=== PATIENT | male | born 1935 | race Caucasian/White ===

== ENCOUNTER 2023-02-15 18:32 | Inpatient (IN) | payer MEDICARE, BC ==
[2023-02-15 19:11] LABS: #Basophils 0.1 10x3/uL (0.0-0.2); #Monocytes 0.9 10x3/uL (0.0-1.1); #Neutrophils 7.5 10x3/uL (1.5-8.4); %Basophils 0.7 % (0.0-2.0); %Eosinophils 0.4 % (0.0-6.0); %Monocytes 9.4 % (0.0-10.0); %Neutrophils 76.9 % (40.0-75.0); Hemoglobin 13.5 g/dL (13.5-17.5); Mean Corpuscular HGB CONC 33.7 g/dL (32.0-36.0); Mean Corpuscular Hemoglobin 30.9 pg (27.0-33.0); Mean Corpuscular Volume 91.8 fl (81.2-95.1); Mean Platelet Volume 10.5 fl (7.4-10.4); Platelet Count 166 10x3/uL (150-450); RBC Distribution Width 13.1 % (11.5-14.5); Red Blood Cell (RBC) Count 4.37 10x6/uL (4.32-5.72); White Blood Cell (WBC) Count 9.7 10x3/uL (3.5-10.5)
[2023-02-15 19:24] LABS: ALT (SGPT) 19 U/L (8-55); AST (SGOT) 40 U/L (5-34); Alkaline Phosphatase 68 U/L (40-110); Anion Gap 16 mmol/L (10-20); BUN (Urea Nitrogen) 35 mg/dL (8.4-25.7); Bilirubin, Total 0.8 mg/dL (0.2-1.2); CK (CPK) 841 U/L (30-200); Calc. Creatinine Clearance 0 mL/min (70-130); Calcium 9.1 mg/dL (7.8-10.44); Carbon Dioxide 22 mmol/L (23-31); Chloride 104 mmol/L (98-107); Estimated GFR 50; Globulin 3.9 g/dL (2.4-3.5); Glucose 97 mg/dL (83-110); Lipase 13 U/L (8-78); Potassium 4.2 mmol/L (3.5-5.1); Protein, Total 7.9 g/dL (5.8-8.1); Sodium 138 mmol/L (136-145)
[2023-02-15 19:47] LABS: CKMB 19.7 ng/mL (0-6.6)
[2023-02-15] MEDS ORDERED: Aspirin Chewable 81 MG TAB ONE (20:05)
[2023-02-15 20:23] LABS: SARS-CoV-2 NAA Rapid Test Not Detected (NotDetected)
[2023-02-15 20:24] LABS: Bilirubin Neg (Negative); Blood, Urine 25 (Negative); Clarity Clear (Clear); Glucose, Urine (Dipstick) Normal (Negative); Ketone, Urine 5 mg/dL (Negative); Leukocyte 25 (Negative); Nitrite Negative (Negative); Protein, Urine (Dipstick) 30 mg/dl (Neg-Trace); Urobilinogen Normal mg/dL (Less than 2); pH, Urine 6.5 (5.0-9.0)
[2023-02-15 20:33] LABS: WBC/HPF 0-3 HPF (0-3)
[2023-02-15 20:34] LABS: Bacteria/HPF Rare-Few HPF (None Seen); Squamous Epithelial 0-3 HPF (0-3)
[2023-02-15] MEDS ORDERED: Ondansetron ODT 4 MG TAB PO PRN (21:51)
[2023-02-15] MEDS ORDERED: Senokot S 8.6-50 MG TAB PO PRN (21:51)
[2023-02-15] MEDS ORDERED: Electrolyte Replacement Protocol FS PRN (21:51)
[2023-02-15 23:04] VITALS: BMI 22.7
[2023-02-15] MEDS ORDERED: Lactated Ringer's 1,000 ML IV SCH (23:59)
[2023-02-16 00:56] LABS: Troponin I 0.079 ng/mL (< 0.028)
[2023-02-16 03:20] LABS: #Eosinphils 0.1 10x3/uL (0.0-0.5); #Monocytes 0.9 10x3/uL (0.0-1.1); #Neutrophils 4.4 10x3/uL (1.5-8.4); %Basophils 0.6 % (0.0-2.0); %Eosinophils 1.8 % (0.0-6.0); %Lymphocytes 22.3 % (18.0-47.0); %Monocytes 12.8 % (0.0-10.0); %Neutrophils 62.2 % (40.0-75.0); Hemoglobin 12.2 g/dL (13.5-17.5); Mean Corpuscular HGB CONC 34.5 g/dL (32.0-36.0); Mean Corpuscular Hemoglobin 31.7 pg (27.0-33.0); Mean Corpuscular Volume 91.9 fl (81.2-95.1); Mean Platelet Volume 9.9 fl (7.4-10.4); Platelet Count 164 10x3/uL (150-450); RBC Distribution Width 13.1 % (11.5-14.5); Red Blood Cell (RBC) Count 3.85 10x6/uL (4.32-5.72); White Blood Cell (WBC) Count 7.1 10x3/uL (3.5-10.5)
[2023-02-16 03:36] LABS: Troponin I 0.078 ng/mL (< 0.028)
[2023-02-16 03:40] LABS: Anion Gap 16 mmol/L (10-20); BUN (Urea Nitrogen) 31 mg/dL (8.4-25.7); Calc. Creatinine Clearance 46 mL/min (70-130); Calcium 8.8 mg/dL (7.8-10.44); Carbon Dioxide 20 mmol/L (23-31); Chloride 109 mmol/L (98-107); Estimated GFR 61; Glucose 87 mg/dL (83-110); Potassium 4.1 mmol/L (3.5-5.1); Sodium 141 mmol/L (136-145)
[2023-02-16] MEDS: Famotidine 20 MG TAB PO SCH (09:47)
[2023-02-16] MEDS ORDERED: Loratadine 10 MG TAB PO PRN (10:01)
[2023-02-16] MEDS ORDERED: Magnesium 2 GM/50 ML(in water) 2 GM in Premix Bag 1 BAG IVPB SCH (14:00)
[2023-02-16] MEDS: Acetaminophen 325 MG TAB PO PRN (15:57)
[2023-02-17 07:38] LABS: #Basophils 0.1 10x3/uL (0.0-0.2); #Eosinphils 0.2 10x3/uL (0.0-0.5); %Basophils 0.7 % (0.0-2.0); %Eosinophils 1.9 % (0.0-6.0); %Lymphocytes 19.2 % (18.0-47.0); %Monocytes 10.7 % (0.0-10.0); %Neutrophils 67.3 % (40.0-75.0); Hemoglobin 12.7 g/dL (13.5-17.5); Mean Corpuscular HGB CONC 33.7 g/dL (32.0-36.0); Mean Corpuscular Hemoglobin 31.4 pg (27.0-33.0); Mean Corpuscular Volume 93.3 fl (81.2-95.1); Mean Platelet Volume 10.1 fl (7.4-10.4); Platelet Count 185 10x3/uL (150-450); RBC Distribution Width 13.2 % (11.5-14.5); Red Blood Cell (RBC) Count 4.04 10x6/uL (4.32-5.72); White Blood Cell (WBC) Count 8.9 10x3/uL (3.5-10.5)
[2023-02-17 07:55] LABS: ALT (SGPT) 19 U/L (8-55); AST (SGOT) 43 U/L (5-34); Albumin 3.4 g/dL (3.4-4.8); Alkaline Phosphatase 60 U/L (40-110); Anion Gap 15 mmol/L (10-20); BUN (Urea Nitrogen) 22 mg/dL (8.4-25.7); Bilirubin, Total 0.7 mg/dL (0.2-1.2); CK (CPK) 433 U/L (30-200); Calc. Creatinine Clearance 48 mL/min (70-130); Calcium 8.7 mg/dL (7.8-10.44); Carbon Dioxide 21 mmol/L (23-31); Chloride 107 mmol/L (98-107); Estimated GFR 64; Globulin 3.6 g/dL (2.4-3.5); Glucose 93 mg/dL (83-110); Magnesium 2.1 mg/dL (1.6-2.6); Potassium 4.5 mmol/L (3.5-5.1); Sodium 138 mmol/L (136-145)
[2023-02-17] MEDS: Famotidine 20 MG TAB PO SCH (07:56)
[2023-02-17] MEDS: Tamsulosin HCl 0.4 MG CAP PO SCH (07:56)
[2023-02-17 08:11] LABS: Phosphorus 2.8 mg/dL (2.3-4.7)
[2023-02-17] MEDS: Acetaminophen 325 MG TAB PO PRN (09:05)
[2023-02-18] MEDS: Acetaminophen 325 MG TAB PO PRN (08:00)
[2023-02-18] MEDS: Tamsulosin HCl 0.4 MG CAP PO SCH (08:00)
[2023-02-18] MEDS: Famotidine 20 MG TAB PO SCH (08:00)
[2023-02-18] MEDS ORDERED: Sodium Chloride 0.9% 500 ML IV SCH (08:15)
[2023-02-18] MEDS ORDERED: Senokot S 8.6-50 MG TAB PO PRN (10:00)
[2023-02-18 10:26] LABS: Bilirubin Neg (Negative); Blood, Urine 10 (Negative); Glucose, Urine (Dipstick) Normal (Negative); Ketone, Urine Negative (Negative); Leukocyte Negative (Negative); Nitrite Negative (Negative); Protein, Urine (Dipstick) 15 mg/dl (Neg-Trace); Urobilinogen Normal mg/dL (Less than 2)
[2023-02-18 10:35] LABS: Clarity Slightly Cloudy (Clear)
[2023-02-18] MEDS ORDERED: Aspirin Chewable 81 MG TAB PO SCH (10:38)
[2023-02-18 10:40] LABS: Bacteria/HPF 4+ HPF (None Seen); Triple Phosphate Crystal 2+ HPF (None Seen)
[2023-02-18] MEDS ORDERED: Aspirin Chewable 81 MG TAB ONE (10:40)
[2023-02-18 10:41] LABS: CAUTI Indications for Culture Alt mental st,lethar; RBC/HPF 0-3 HPF (0-3); Squamous Epithelial 0-3 HPF (0-3); WBC/HPF 0-3 HPF (0-3)
[2023-02-18 10:42] LABS: Urine Culture Reflex No No
[2023-02-18] MEDS ORDERED: VANCOMYCIN 1.25 GM/250 ML BAG 1.25 GM in Premix Bag 1 BAG IVPB SCH ×2 (10:45→14:00)
[2023-02-18] MEDS: Cefepime 1 GM in Sodium Chloride 0.9% 100 ML IVPB SCH ×2 (12:45→22:15)
[2023-02-18 13:10] LABS: Troponin I 0.379 ng/mL (< 0.028)
[2023-02-19 07:44] LABS: #Basophils 0.1 10x3/uL (0.0-0.2); #Eosinphils 0.2 10x3/uL (0.0-0.5); #Monocytes 0.9 10x3/uL (0.0-1.1); %Basophils 0.6 % (0.0-2.0); %Eosinophils 1.9 % (0.0-6.0); %Monocytes 8.8 % (0.0-10.0); %Neutrophils 72.5 % (40.0-75.0); Hemoglobin 12.5 g/dL (13.5-17.5); Mean Corpuscular HGB CONC 33.2 g/dL (32.0-36.0); Mean Corpuscular Hemoglobin 31.3 pg (27.0-33.0); Mean Corpuscular Volume 94.3 fl (81.2-95.1); Mean Platelet Volume 10.5 fl (7.4-10.4); Platelet Count 176 10x3/uL (150-450); White Blood Cell (WBC) Count 9.7 10x3/uL (3.5-10.5)
[2023-02-19] MEDS: Famotidine 20 MG TAB PO SCH (08:01)
[2023-02-19] MEDS: Tamsulosin HCl 0.4 MG CAP PO SCH (08:01)
[2023-02-19] MEDS: Aspirin 325 mg Enteric Coated Tablet PO SCH (08:01)
[2023-02-19 08:04] LABS: Anion Gap 16 mmol/L (10-20); BUN (Urea Nitrogen) 24 mg/dL (8.4-25.7); Calc. Creatinine Clearance 44 mL/min (70-130); Calcium 9.1 mg/dL (7.8-10.44); Carbon Dioxide 20 mmol/L (23-31); Chloride 107 mmol/L (98-107); Estimated GFR 57; Glucose 90 mg/dL (83-110); Potassium 4.3 mmol/L (3.5-5.1); Sodium 139 mmol/L (136-145)
[2023-02-19 08:25] LABS: Troponin I 0.217 ng/mL (< 0.028)
[2023-02-19] MEDS ORDERED: hydrALAZINE 25 MG TAB PO PRN (08:38)
[2023-02-19] MEDS: guaiFENesin ER 600 MG TAB PO SCH ×2 (08:49→20:35)
[2023-02-19] MEDS ORDERED: [UNRECOGNIZED DRUG - OTHER] EA EYE SCH (09:00)
[2023-02-19] MEDS ORDERED: LATANOPROST EA EYE SCH (09:00)
[2023-02-19] MEDS ORDERED: TIMOLOL MALEATE EA EYE SCH (09:00)
[2023-02-19] MEDS ORDERED: Metoprolol Tartrate 25 MG TAB PO SCH (10:00)
[2023-02-19] MEDS: Cefepime 1 GM in Sodium Chloride 0.9% 100 ML IVPB SCH ×2 (10:28→22:26)
[2023-02-19] MEDS: Vancomycin HCl 1 GM in Sodium Chloride 0.9% 250 ML 250 ML IVPB SCH (13:23)
[2023-02-19] MEDS: Metoprolol Tartrate 25 MG TAB PO SCH (20:35)
[2023-02-20] MEDS: Aspirin 325 mg Enteric Coated Tablet PO SCH (08:34)
[2023-02-20] MEDS: guaiFENesin ER 600 MG TAB PO SCH ×2 (08:34→21:02)
[2023-02-20] MEDS: Metoprolol Tartrate 25 MG TAB PO SCH ×2 (08:35→21:02)
[2023-02-20] MEDS: Tamsulosin HCl 0.4 MG CAP PO SCH (08:35)
[2023-02-20] MEDS: Famotidine 20 MG TAB PO SCH ×2 (08:35→21:02)
[2023-02-20] MEDS ORDERED: Amlodipine 5 MG TAB PO SCH (09:30)
[2023-02-20] MEDS: Cefepime 1 GM in Sodium Chloride 0.9% 100 ML IVPB SCH ×2 (10:55→22:34)
[2023-02-20 13:39] LABS: Vancomycin, Trough 9.8 ug/mL
[2023-02-20] MEDS: Vancomycin HCl 1 GM in Sodium Chloride 0.9% 250 ML 250 ML IVPB SCH (16:00)
[2023-02-21] MEDS ORDERED: Vancomycin HCl 750 MG in Sodium Chloride 0.9% 250 ML 250 ML IVPB SCH (02:00)
[2023-02-21] MEDS ORDERED: Vancomycin HCl 1 GM in Sodium Chloride 0.9% 250 ML 250 ML IVPB SCH (08:00)
[2023-02-21] MEDS: Amlodipine 5 MG TAB PO SCH (08:39)
[2023-02-21] MEDS: Tamsulosin HCl 0.4 MG CAP PO SCH (08:39)
[2023-02-21] MEDS: Famotidine 20 MG TAB PO SCH ×2 (08:40→20:40)
[2023-02-21] MEDS: Metoprolol Tartrate 25 MG TAB PO SCH ×2 (08:40→20:40)
[2023-02-21] MEDS: guaiFENesin ER 600 MG TAB PO SCH ×2 (08:40→20:40)
[2023-02-21] MEDS: Cefepime 1 GM in Sodium Chloride 0.9% 100 ML IVPB SCH ×2 (11:43→22:38)
[2023-02-22] MEDS: Tamsulosin HCl 0.4 MG CAP PO SCH (10:29)
[2023-02-22] MEDS: guaiFENesin ER 600 MG TAB PO SCH ×2 (10:29→23:25)
[2023-02-22] MEDS: Amlodipine 5 MG TAB PO SCH (10:29)
[2023-02-22] MEDS: Metoprolol Tartrate 25 MG TAB PO SCH ×2 (10:30→23:25)
[2023-02-22] MEDS: Cefepime 1 GM in Sodium Chloride 0.9% 100 ML IVPB SCH ×2 (10:35→23:26)
[2023-02-22] MEDS ORDERED: Famotidine 20 MG TAB PO SCH (21:00)
[2023-02-23] MEDS: guaiFENesin ER 600 MG TAB PO SCH (08:41)
[2023-02-23] MEDS: Tamsulosin HCl 0.4 MG CAP PO SCH (08:42)
[2023-02-23] MEDS: Metoprolol Tartrate 25 MG TAB PO SCH (08:42)
[2023-02-23] MEDS: Amlodipine 5 MG TAB PO SCH (08:42)
[2023-02-23 13:16] VITALS: BP 123/58; TEMP 98.2
== END 2023-02-23 13:30 | DRG 556 ==
LOC: CSHERS 18:32 → INTOOBSV 23:00 → CSHTELE 23:00 → CSHIMCU 02-18 11:52 → OBSVTOIN 02-18 13:56 → CSHTELE 02-20 11:42
PROVIDERS: ADMIT Student in an Organized Health Care Education/Training Program; ATTEND Internal Medicine
DX: R29.898 Other symptoms and signs involving the musculoskeletal system (principal); N17.9 Acute kidney failure, unspecified; M62.82 Rhabdomyolysis; Z60.2 Problems related to living alone; Z20.822 Contact with and (suspected) exposure to COVID-19; N40.0 Benign prostatic hyperplasia without lower urinary tract symptoms; Z90.89 Acquired absence of other organs; R77.8 Other specified abnormalities of plasma proteins; E86.0 Dehydration; I95.9 Hypotension, unspecified; I44.7 Left bundle-branch block, unspecified; R13.10 Dysphagia, unspecified; Z66 Do not resuscitate; I48.0 Paroxysmal atrial fibrillation
CPT/HCPCS: 36415; 70450; 71045; 72125; 74018; 74230; 80048; 80053; 80202; 81001; 81003; 81015; 82550; 82553; 82565; 83605; 83690; 83735; 84100; 84484; 84520; 85025; 87040; 87081; 87086; 93005; 93010; 93306; 93880; 94640; 94760; 94762; 94799; 96360; 96361; 96374; 96375; G0378; J0692; J1650; J3370; J3475; J3490; J7030; J7050; J7120; J7611